=== PATIENT | female | born 1940 | race Caucasian/White ===

== ENCOUNTER 2019-06-02 17:16 | Emergency (ER) | payer OTHER ==
[~2019-06-02] VITALS: Ht 154.9 cm; Wt 45.4 kg
[2019-06-02 17:18] VITALS: Ht 154.9 cm; Wt 45.4 kg
[2019-06-02 17:33] LABS: microscopic required? YES; urine erythrocyte NEGATIVE (NEGATIVE)
[2019-06-02 17:35] LABS: BASOPHIL % 0.3 % (0-2); PLATELET COUNT 290 x10^3mcL (130-400)
[2019-06-02 17:36] LABS: RED CELL DISTRIBUTION WIDTH 15.2 % (11.5-14.5)
[2019-06-02 17:44] LABS: CALCIUM 9.2 mg/dL (8.5-10.1); CARBON DIOXIDE 26.5 mmol/L (21-32); CHLORIDE SERUM 106 mmol/L (98-107); CREATININE SERUM 0.7 mg/dL (0.6-1.0); GLUCOSE SERUM 154 mg/dL (74-106); POTASSIUM SERUM 3.9 mmol/L (3.5-5.1); SODIUM SERUM 141 mmol/L (136-145)
[2019-06-02 17:49] LABS: ALBUMIN 3.4 g/dL (3.4-5.0); ALKALINE PHOSPHATASE 89 U/L (46-116); ALT/SGPT 26 U/L (14-59); AST/SGOT 11 U/L (15-37); BILIRUBIN TOTAL 0.37 mg/dL (0.20-1.00); TOTAL PROTEIN, SERUM 7.2 g/dL (6.4-8.2)
[2019-06-02] MEDS ORDERED: TRAMADOL HYDRO100 MG PO (19:00)
[2019-06-02] MEDS ORDERED: ULTRAM50 MG PO (19:09)
[2019-06-02] MEDS ORDERED: HUMALOG100 U/ML SC (19:10)
[2019-06-02] MEDS ORDERED: LORAZEPAM1 MG PO (19:10)
[2019-06-02] MEDS ORDERED: DOXEPIN HCL50 MG PO (19:10)
[2019-06-03] VITALS: BP 122/59
== END 2019-06-03 | disposition short-term general hospital (02) ==
LOC: ED 17:16
DX: I62.9 Nontraumatic intracranial hemorrhage, unspecified (principal); G40.909 Epilepsy, unspecified, not intractable, without status epilepticus; N39.0 Urinary tract infection, site not specified; I10 Essential (primary) hypertension; E11.9 Type 2 diabetes mellitus without complications; Z90.89 Acquired absence of other organs; Z90.710 Acquired absence of both cervix and uterus
CPT/HCPCS: J0696; J1953; J7030; J7060; Q0092

== ENCOUNTER 2020-01-04 16:42 | Emergency (ER) | payer OTHER ==
[~2020-01-04] VITALS: Ht 152.4 cm; Wt 48.1 kg
[~2020-01-04 16:42] MED LIST: DOXEPIN HCL50 MG PO; HUMALOG100 U/ML SC; LORAZEPAM1 MG PO; TRAMADOL HYDRO100 MG PO; ULTRAM50 MG PO
[2020-01-04 16:49] VITALS: Ht 152.4 cm; Wt 48.1 kg
[2020-01-04 18:07] LABS: BASOPHIL % 0.4 % (0-2); PLATELET COUNT 213 x10^3mcL (130-400); RED CELL DISTRIBUTION WIDTH 14.3 % (11.5-14.5)
[2020-01-04 18:55] LABS: CALCIUM 9.5 mg/dL (8.5-10.1); CHLORIDE SERUM 102 mmol/L (98-107); CREATININE SERUM 1.1 mg/dL (0.6-1.0); GLUCOSE SERUM 229 mg/dL (74-106); POTASSIUM SERUM 4.6 mmol/L (3.5-5.1); SODIUM SERUM 139 mmol/L (136-145)
[2020-01-04 19:00] LABS: ALBUMIN 3.7 g/dL (3.4-5.0); ALKALINE PHOSPHATASE 87 U/L (46-116); ALT/SGPT 25 U/L (14-59); AST/SGOT 17 U/L (15-37); BILIRUBIN TOTAL 0.2 mg/dL (0.20-1.00); TOTAL PROTEIN, SERUM 7.8 g/dL (6.4-8.2)
[2020-01-04 21:47] VITALS: BP 114/66
== END 2020-01-04 21:47 | disposition home or self-care (01) ==
LOC: ED 16:42
PROVIDERS: Emergency Medicine
DX: I77.1 Stricture of artery (principal); E11.51 Type 2 diabetes mellitus with diabetic peripheral angiopathy without gangrene; I10 Essential (primary) hypertension; Z90.89 Acquired absence of other organs; Z98.890 Other specified postprocedural states
CPT/HCPCS: 36415; J1885; J2270; Q0162